=== PATIENT | female | born 1995 | race African-American/Black ===

== ENCOUNTER 2019-03-31 12:59 | Emergency (ER) | payer MEDICAID, OTHER ==
[2019-03-31] MEDS ORDERED: Acetaminophen 500 MG TAB ONE (13:15)
--- NOTE | 2019-03-31 14:17 | ULT ---
Exam: Transabdominal and endovaginal pelvic ultrasound HISTORY:Pelvic pain COMPARISON: None TECHNIQUE: Transabdominal and endovaginal imaging of the pelvis is performed. Ovaries are interrogate d with grayscale, color flow, Doppler imaging and spectral wave form analysis FINDINGS: Uterus: No myometrial masses. Uterus measurin.4 x 5.0 x 7.0 cm. Endometrium: Within the endometrium there is a gestational sac, yolk sac and pole. [place]-rump l ength is 1.87 cm corresponding to gestational age of 8 weeks 3 days. heart tones: 169 bpm Subchorionic hemorrhage: None. Free fluid: There is free fluid in the cul-de-sac. Left ovary: Left ovary is not appreciated. Left adnexa: No obvious masses Right ovary: Normal echotexture. Anechoic focus measuring 1.9 x 1.8 x 1.3 cm may represent a paraovar sav cyst Right ovary measurement: 4.4 x 4.4 x 1.9 cm Ovarian Doppler: Vascular flow to the right ovary IMPRESSION: 1. Single intrauterine gestation with heart tones. Gestational age by crown-rump length is 8 we eks 3 days. 2. Right paraovarian cyst.
== END 2019-03-31 14:55 | disposition home or self-care (01) ==
LOC: ERS 12:59
DX: O20.9 Hemorrhage in early pregnancy, unspecified (principal); O98.811 Other maternal infectious and parasitic diseases complicating pregnancy, first trimester; B37.3 Candidiasis of vulva and vagina; Z3A.08 8 weeks gestation of pregnancy
CPT/HCPCS: 76856; 96360

== ENCOUNTER 2019-08-17 16:06 | Day surgery (SDC) | payer MEDICAID, OTHER ==
[2019-08-17 16:24] VITALS: BMI 39.9
[2019-08-17] MEDS ORDERED: hydrALAZINE 20 MG/ML VIAL SLOW IVP PRN (16:41)
[2019-08-17] MEDS ORDERED: diphenhydrAMINE 50 MG/ML VIAL IVP PRN (16:54)
[2019-08-17] MEDS ORDERED: Metoclopramide HCl 10 MG/2 ML VIAL IVP PRN (16:54)
[2019-08-17 17:00] LABS: Bacteria/HPF None Seen HPF (None Seen); Bilirubin Negative (Negative); Blood, Urine Negative (Negative); Clarity Clear (Clear); Glucose, Urine (Dipstick) Normal (Negative); Leukocyte 250 Leu/uL (Negative); Nitrite Negative (Negative); Protein, Urine (Dipstick) 10 mg/dL (Neg-Trace); RBC/HPF 0-3 HPF (0-3); Urobilinogen Normal mg/dL (Less than 2)
[2019-08-17] MEDS ORDERED: Lactated Ringer's 1,000 ML IV SCH (17:00)
--- NOTE | 2019-08-17 17:11 | HP ---
PRIMARY SECURITY SALES MANAGER: Asia Louise DO. CHIEF COMPLAINT: Abdominal pain. HISTORY OF PRESENT ILLNESS: The patient is a 23-year-old G2, P0 female with an intrauterine at 28 weeks and 1 day, presenting with a 1-week history of lower pelvic pains that she says had gotten worse today. She reports that the pain is sharp and bilateral, worse with activity and movement, but always present. The patient denies any recent illness, fever, fall, headache, chest pain, shortness of breath, nausea, vomiting, or diarrhea. She has had constipation with this . Denies any new rashes, hip problems, knee problems, muscle weakness. Denies vaginal bleeding or leakage of fluid. Denies urinary urgency. Does report frequency. The patient reports she has been having ongoing headache for the last 3 weeks off and on, that has not been amenable with Tylenol. PAST MEDICAL HISTORY: Antiphospholipid antibody syndrome. PAST SURGICAL HISTORY: Negative. ALLERGIES: NO KNOWN DRUG ALLERGIES. MEDICATIONS: 1. Lovenox. 2. Aspirin. 3. vitamins. SOCIAL HISTORY: Positive for marijuana use. OB LABORATORY DATA: Blood type is B positive. Antibody screen is negative. VDRL is nonreactive in the first trimester. Hepatitis B surface antigen is negative. HIV is nonreactive. She is rubella nonimmune. Drug screen positive for THC. Diabetes screen is 101. REVIEW OF SYSTEMS: Per HPI. PHYSICAL EXAMINATION: VITAL SIGNS: Blood pressure is 117/73, heart rate of 93, respiratory rate of 18 , saturating 99% on room air, and temperature 98.2. ASSESSMENT AND PLAN: The patient is a 23-year-old, G2, P0 female with an intrauterine at 28 weeks and a day, on aspirin and Lovenox for antiphospholipid antibody syndrome, presenting with pelvic pain and headache. Pelvic pain is consistent by history and physical exam to musculoskeletal pains of . We are getting a urinalysis to evaluate for possible urinary tract infection. Also given her history of frequency, though given the long-standing course of the symptoms for history of frequency. Fetus has a category 1 tracing and reactive NST. Her headache is unresolved with Tylenol. At this time, we will treat her with Reglan and Benadryl in hopes that will can resolve her symptoms. The patient has had 1000 mg of Tylenol in the last few hours. Pending her urinalysis results and treatment of her headache, the patient will be discharged to home with indicated medications. addendum. headache resolved with reglan/benadryl. Pt feeling better ua. neg for signs of infections Job ID: [id number] MTDD
[2019-08-17] MEDS ORDERED: diphenhydrAMINE 50 MG/ML VIAL ONE (17:47)
[2019-08-17 18:31] LABS: Bacteria/HPF None Seen HPF (None Seen); Bilirubin Negative (Negative); Blood, Urine Negative (Negative); Clarity Clear (Clear); Glucose, Urine (Dipstick) Normal (Negative); Leukocyte Negative Leu/uL (Negative); Nitrite Negative (Negative); Protein, Urine (Dipstick) 20 mg/dL (Neg-Trace); RBC/HPF 0-3 HPF (0-3); Squamous Epithelial 0-3 HPF (0-3); Urobilinogen Normal mg/dL (Less than 2); WBC/HPF 0-3 HPF (0-3)
== END 2019-08-17 19:56 | disposition home or self-care (01) ==
LOC: L&D/OP 16:06
PROVIDERS: ATTEND Obstetrics & Gynecology
DX: O99.89 Other specified diseases and conditions complicating pregnancy, childbirth and the puerperium (principal); R10.2 Pelvic and perineal pain; O99.113 Other diseases of the blood and blood-forming organs and certain disorders involving the immune mechanism complicating pregnancy, third trimester; D68.61 Antiphospholipid syndrome; Z3A.28 28 weeks gestation of pregnancy; Z79.82 Long term (current) use of aspirin; Z79.899 Other long term (current) drug therapy
CPT/HCPCS: 81001; A4353; J1200; J2765

== ENCOUNTER 2019-08-23 22:43 | Emergency (ER) | payer OTHER ==
[2019-08-23] MEDS ORDERED: Ondansetron ODT 4 MG TAB ONE (23:32)
[2019-08-23 23:46] LABS: Bilirubin Negative (Negative); Blood, Urine Negative (Negative); Clarity Clear (Clear); Glucose, Urine (Dipstick) Normal (Negative); Leukocyte Negative Leu/uL (Negative); Nitrite Negative (Negative); Protein, Urine (Dipstick) 10 mg/dL (Neg-Trace)
== END 2019-08-24 00:41 | disposition home or self-care (01) ==
LOC: ERS 22:43
DX: O99.513 Diseases of the respiratory system complicating pregnancy, third trimester (principal); J06.9 Acute upper respiratory infection, unspecified; O98.513 Other viral diseases complicating pregnancy, third trimester; B34.9 Viral infection, unspecified; O99.343 Other mental disorders complicating pregnancy, third trimester; F41.9 Anxiety disorder, unspecified; F32.9 Major depressive disorder, single episode, unspecified; Z79.899 Other long term (current) drug therapy; Z3A.29 29 weeks gestation of pregnancy
CPT/HCPCS: 81003; 87804; Q0162

== ENCOUNTER 2019-09-13 12:10 | Day surgery (SDC) | payer OTHER ==
[2019-09-13 12:52] VITALS: BMI 38.7
[2019-09-13] MEDS ORDERED: FLU VACC QS2019-20(6MOS UP)/PF 60 MCG/0.5 ML SYRINGE IM ONE (13:00)
--- NOTE | 2019-09-13 14:58 | ULT ---
ULTRASOUND BIOPHYSICAL PROFILE: HISTORY: distress, decreased movement FINDINGS: A single live intrauterine gestation is seen. heart rate:144bpm RAMON: 13.8 cm Placenta: Posterior without placenta previa Cervical length: 3.5 cm OB biophysical profile: tone: 2 breathin movements: 2 Amniotic fluid: 2 IMPRESSION: The ultrasound biophysical profile score is 8 out of 8.
[2019-09-13] MEDS ORDERED: hydrALAZINE 20 MG/ML VIAL SLOW IVP PRN (15:00)
--- NOTE | 2019-09-13 15:43 | PRG ---
DATE OF SERVICE: 09/13/2019 PRIMARY OB: Dr. Asia Louise. CHIEF COMPLAINT: Abdominal pain and decreased movement. HISTORY OF PRESENT ILLNESS: The patient is a 23-year-old G2, P0 female with an intrauterine at 31 weeks and 5 days, presenting with onset of left upper quadrant abdominal pain after having intercourse or sex with her female partner earlier today. The patient reports that she has had this pain in the past periodically through the and just came for evaluation. She also reports that she has not felt her baby move very much in the last 24 hours. She reports some spotting that is associated with intercourse. The patient reports that the bleeding is just spotting that she noticed when she wiped and has not had anything persistent. The patient denies any fever, fall. Does have headaches periodically, but this has been a chronic issue for her, and she reports Tylenol helps at times. She denies nausea, vomiting, diarrhea, constipation, hip problems, knee problems, muscle weakness. Denies urinary urgency or frequency. PAST MEDICAL HISTORY: She has antiphospholipid antibody syndrome. PAST SURGICAL HISTORY: D and C. ALLERGIES: NO KNOWN DRUG ALLERGIES. MEDICATIONS: vitamins, aspirin, and Lovenox. SOCIAL HISTORY: Denies drug, alcohol, tobacco use. Reviewing a previous visit about 3 weeks ago, patient was having ongoing back, hip and pelvic pain, worse with movement and activity. OB LABS: Unavailable at time of dictation. REVIEW OF SYSTEMS: Per HPI. PHYSICAL EXAMINATION: VITAL SIGNS: Blood pressure is 132/70, heart rate of 82, respiratory rate of 16, temperature 97.8. GENERAL: She appears to be in no acute distress. She is alert, oriented, cooperative, and pleasant to interact with. HEAD: Normocephalic, atraumatic. LUNGS: Clear to auscultation bilaterally. HEART: Regular rate and rhythm. ABDOMEN: Gravid and soft. She does have a little bit of tenderness with deviation of the uterus to the right with pain on the left in the vicinity of the left fundus. EXTREMITIES: Nontender, nonedematous. : Deferred at this time. DIAGNOSTIC DATA: heart tracing shows a baseline in the 140s with moderate long-term variability as having 10 x 10 accelerations, no findings technically call sign for reactivity until prior to discharge began having 15 x 15 accelerations. BPP was performed and was 8/8. Tocometer showing no contractions. ASSESSMENT AND PLAN: The patient is a 23-year-old G2, P0 female with an intrauterine at 31 weeks and 5 days presenting primarily for abdominal pain but also for decreased movement and some spotting. The patient by history reports that she had this isolated spotting with wiping around the time of intercourse. I have given her reassurance that can be a normal finding. The patient has also been counseled that her fetus is reassuring by BPP and also by heart tracing as both have been reassuring with a combined score of 10/10. The patient is being discharged to home. She has instructions to follow up with her primary OB as scheduled. Job ID: [id number]
== END 2019-09-13 14:40 | disposition home or self-care (01) ==
LOC: L&D/OP 12:10
PROVIDERS: ATTEND Obstetrics & Gynecology
DX: O99.89 Other specified diseases and conditions complicating pregnancy, childbirth and the puerperium (principal); R10.12 Left upper quadrant pain; O36.8130 Decreased fetal movements, third trimester, not applicable or unspecified; O26.853 Spotting complicating pregnancy, third trimester; Z3A.31 31 weeks gestation of pregnancy; Z79.01 Long term (current) use of anticoagulants; Z79.82 Long term (current) use of aspirin
CPT/HCPCS: 76815; 76819; 99282

== ENCOUNTER 2019-09-16 16:38 | Day surgery (SDC) | payer OTHER ==
[2019-09-16] MEDS ORDERED: hydrALAZINE 20 MG/ML VIAL SLOW IVP PRN (17:06)
--- NOTE | 2019-09-16 17:17 | PDOC.FPROB ---
Addendum entered and electronically signed by John Butcher DO 09/16/19 17: 42: Cervical check Closed/0%/-3 posterior Original Note: FMR OB H&P: HPI - History of Present Illness Chief Complaint: Sharp abdominal pain Indentification: 23 yo History of Present Illness: 23 yo F presents for cc of sharp abd pain that radiates from her vagina into her abdomen. She denies contractions, lof and vaginal discharge. She was here for similar symptoms and was told likely dx of round ligament pain. BPP at that time was 8/8 and reactive NST (Total 10/). Pt reports worsening pain with movement and denies remitting factors. Additionally, pt reports small amount of pinktinged paper after wiping this am but denies continued bleeding. She has a history of Antiphospholipid syndrome and takes 40mg lovenox daily, does report she missed her last two doses. Otherwise, denies cp, sob, dysuria, fever, chills. Primary Care Physician: Jessica FMR OB H&P: Current - Care : 2 Para: 0010 Gestational age: 32.1 Due date: 11/10/19 - OB Labs Blood type: B RH: positive Antibody Screen: negative HIV: negative RPR: negative HepBsAg: negative Rubella: non-immune (equivocal) Quad screen: negative Urine drug screen: positive (thc) Gonorrhea: negative Chlamydia: negative Pap Smear: 04/16 nilm 1 hour gtt: 101 FMR OB H&P: History - Past Medical History PMH: Antiphospholipid syndrome - OB History OB History: 1 prior miscarriage APS taking lovenox - [employer]HO[employer] History [employer] History: NILM 2019, no hx of stis - Surgical History Sx History: D&C X1 - Social History Social History: Denies alcohol tobacco and drugs (pos UDS this ) - Family History Family History: Paternal history of OR and stroke @ age 50 Paternal hx of DMII FMR OB H&P: Medications - Current Home Medications: Medication Instructions Recorded Confirmed Type Enoxaparin Sodium [Lovenox] 1 syringe SQ DAILY 08/17/19 09/13/19 History Vit37/Iron/Folic Acid 1 tab PO DAILY 08/17/19 09/13/19 History [P[place]ata Chewable Tablet] Allergies/Adverse Reactions: Allergies Allergy/AdvReac Type Severity Reaction Status Date / Time No Known Allergies Allergy Verified 09/16/19 17:01 FMR OB H&P: ROS - Review of Systems General: denies: fever/chills, night sweats Eyes: denies: vision changes, scotomas Cardiovascular: reports: edema. denies: chest pain, palpitation Respiratory: denies: cough, shortness of breath Gastrointestinal: reports: abdominal pain, nausea. denies: indigestion, bloating, cramping, vomiting, diarrhea, constipation Genitourinary (Female): reports: vaginal bleeding. denies: dysuria, hematuria, polyuria, vaginal discharge, vaginal pain, contractions, vaginal pressure Musculoskeletal: denies: pain Neurologic: denies: weakness Integumentary: denies: rash Psychological: reports: depression FMR OB H&P: Vital Signs - Heart Tones Baseline: 150 Variability: moderate Acceleration: present Deceleration: absent Category: category 1 [place] contractions every: None FMR OB H&P: Physical Exam - Physical Exam General: NAD, awake, alert and oriented HEENT: normocephalic and atraumatic, PERRLA, EOMI, MMM, grossly normal vision, grossly normal hearing Neck: trachea midline Heart: RRR, normal S1/S2 General: CTAB, no respiratory distress, good air movement, no rales/rhonchi, no wheezing, no retractions Abdomen: soft, gravid, non-tender, bowel sound present, no masses Neurological: no focal deficit Skin: no rash Lymphatic: no purpura FMR OB H&P: A/P Disposition: Stable, pain likelrelated to round ligament Discussion: Date/Time: 09/16/191710 This H&P was discussed with Dr. Oliveros who agrees with the above documentation and plan. 1) Round ligament pain - pt given fentanyl in EMS and reports improvement in pain - discussed rx of tylenol for continued round ligament pain 2) Decreased movement - BPP ordered - strip reactive Dispo: stable, will check bpp for well being and likely dc to home pending results. Tylenol prn for pain. Abd exam benign and no s/s of significant pathology. Addendum - Attending - Attending Attestation Date/Time: 09/16/191941 I personally evaluated the patient and discussed the management with Dr. Butcher. I agree with the History, Examination, Assessment and Plan documented above with any addition or exceptions noted below. VP3 + for gardnerella - given Rx for Flagyl. Complained of BYRD - given Reglan and Benadryl. BPP 06/07. D/c home when she is able to get a ride.
[2019-09-16] MEDS ORDERED: Metoclopramide HCl 10 MG/2 ML VIAL IVP SCH (19:00)
[2019-09-16] MEDS ORDERED: diphenhydrAMINE 50 MG/ML VIAL IVP SCH (19:00)
--- NOTE | 2019-09-16 20:17 | ULT ---
ULTRASOUND BIOPHYSICAL PROFILE: DATE: 09/16/2019 HISTORY: 23-year-old female. Decreased movement. FINDINGS: breathin tone: 2 movement: 2 Amniotic fluid volume: 2 lie: Cephalic Placenta: Posterior. Maternal cervix poorly visualized. RAMON: 11.5 cm IMPRESSION: Normal biophysical profile score of 8 out of 8, excluding the nonstress test.
== END 2019-09-16 19:39 | disposition home or self-care (01) ==
LOC: L&D/OP 16:38
PROVIDERS: ATTEND Obstetrics & Gynecology
DX: O99.89 Other specified diseases and conditions complicating pregnancy, childbirth and the puerperium (principal); R10.9 Unspecified abdominal pain; O36.8130 Decreased fetal movements, third trimester, not applicable or unspecified; O99.113 Other diseases of the blood and blood-forming organs and certain disorders involving the immune mechanism complicating pregnancy, third trimester; D68.61 Antiphospholipid syndrome; O09.293 Supervision of pregnancy with other poor reproductive or obstetric history, third trimester; Z3A.32 32 weeks gestation of pregnancy; Z79.01 Long term (current) use of anticoagulants
CPT/HCPCS: 76819; 87480; 87510; 87660; J1200; J2765

== ENCOUNTER 2019-10-22 18:00 | Inpatient (IN) | payer OTHER ==
[~2019-10-22 18:00] MED LIST: Bupivacaine 0.25% HCL 30 ML VIAL ONE; Bupivacaine PF 0.5% 30 ML VIAL ONE; Lidocaine 2% MPF 10 ML AMP (For Epidural Use) ONE
[2019-10-22] MEDS ORDERED: Ondansetron PF 4 MG/2 ML Vial IVP PRN (18:28)
[2019-10-22] MEDS ORDERED: Methylergonovine 0.2 MG/ML VIAL IM PRN (18:28)
[2019-10-22] MEDS ORDERED: hydrALAZINE 20 MG/ML VIAL SLOW IVP PRN (18:28)
[2019-10-22] MEDS ORDERED: Diphenoxylate HCl/Atropine Tablet PO PRN (18:28)
[2019-10-22] MEDS ORDERED: Ibuprofen 800 MG TAB PO PRN (18:28)
[2019-10-22] MEDS ORDERED: NS / Oxytocin 40 units/1000ml 1,000 ML IV PRN (18:28)
[2019-10-22] MEDS ORDERED: Carboprost 250 MCG/ML AMP IM PRN (18:28)
[2019-10-22] MEDS ORDERED: Misoprostol 200 MCG TAB PR PRN (18:28)
[2019-10-22] MEDS ORDERED: Lidocaine 1% (PF) 30 ML VIAL SC PRN (18:28)
[2019-10-22] MEDS ORDERED: Acetaminophen 500 MG TAB PO PRN (18:28)
[2019-10-22] MEDS ORDERED: Promethazine HCl 25 MG/ML VIAL IM PRN (18:28)
--- NOTE | 2019-10-22 18:39 | PDOC.LDHP ---
Labor and Delivery H&P Chief complaint: scheduled induction HPI: 24 yo @ 37w2d admit for IOL due to h/o APS, no personal h/o of DVT. Current gestational age (weeks): 37 Due date: 11/10/19 Dating criteria: last menstrual period Grav: 2 Para: 0 OB History Details: 2nd trimester MAB @ 12 weeks Current complications: other (APS) Past Medical History: APS Obesity Anemia Current medications: pre- vitamins, iron, other (Lovenox 40 units daily for PPX (last does yesterday morning) ASA 81 mg QD) Previous surgical history: dilation and curettage Allergies/Adverse Reactions: Allergies Allergy/AdvReac Type Severity Reaction Status Date / Time No Known Allergies Allergy Verified 09/16/19 17:01 Social history: none - Physical Exam Vital signs reviewed and normal: yes General: NAD Heart: RRR Lungs: nonlabored breathing Extremeties: no edema FHT: category 1 (140s, mod chetan, +accels, no decels) [place] contractions every: q2-3 min when properly tracing - Vaginal Exam cm dilated: 1 (cephalic ) Effacement: 50% Station: -2 - OB Labs Blood type: B RH: positive Antibody Screen: negative HIV: negative RPR: negative HEPSAg: negative 1 hour GCT: negative GBS: negative Urine drug screen: positive (repeat negative) Rubella: non-immune Additional Labs: NIPT, msAFP wnl APS + - Assessment 37w2d IUP H/O APS with 2nd trimester MAB Obesity Rubella NI Prior THC use, repeat testing negative Anemia - Plan Plan: admit to L&D, cervical ripening (s/p cytotec x 2; now on pitocin.), informed consent obtained, anesthesia consult for pain management -: Restart lovenox x 6 weeks PP MMR PP 2 units on hold
[2019-10-22 18:40] VITALS: BMI 40.3
[2019-10-22] MEDS: Lactated Ringer's 1,000 ML IV SCH (19:50)
[2019-10-22 19:53] LABS: Hemoglobin 9.6 g/dL (12.0-16.0); Mean Corpuscular HGB CONC 33.9 g/dL (32.0-36.0); Mean Corpuscular Hemoglobin 29.3 pg (27.0-31.0); Mean Corpuscular Volume 86.4 fL (78.0-98.0); Mean Platelet Volume 8.1 fL (7.4-10.4); Platelet Count 293 thou/uL (130-400); RBC Distribution Width 12.7 % (11.5-14.5); Red Blood Cell (RBC) Count 3.28 mill/uL (4.20-5.40)
[2019-10-22] MEDS: Misoprostol 100 MCG TAB VAG SCH (20:13)
[2019-10-22 20:33] LABS: HBSAg Index 0.21 S/CO (0-0.99); Hep B Surf Ag Non-Reactive S/CO (NonReactive); Syphilis Antibody Nonreactive (Nonreactive); Syphilis Antibody Index 0.05 S/CO (<1.00 Non-Reactive)
[2019-10-22 21:49] LABS: Medtox Reader # READER 1
[2019-10-22 21:50] LABS: Amphetamine Not Detected (NotDetected); Barbiturates Screen Not Detected (NotDetected); Benzodiazepine Screen Not Detected (NotDetected); Cocaine Metabolite Screen Not Detected (NotDetected); Medtox Control Line Valid? VALID (VALID); Methadone Not Detected (NotDetected); Methamphetamine Not Detected (NotDetected); Opiate Screen Not Detected (NotDetected); Oxycodone Screen Not Detected (NotDetected); Phencyclidine (PCP) Not Detected (NotDetected); THC/Cannabinoid Screen Not Detected (NotDetected); Tricyclic Screen Not Detected (NotDetected)
[2019-10-22] MEDS: Butorphanol Tartrate 1 MG/ML VIAL SLOW IVP PRN (21:57)
[2019-10-22 23:23] LABS: HIV (1/2) Antibody/Antigen Non-Reactive (NonReactive); HIV 1/2 INDEX 0.11 S/CO (<1.00)
[2019-10-23] MEDS: Misoprostol 100 MCG TAB VAG SCH ×6 (00:03→22:32)
[2019-10-23] MEDS: Butorphanol Tartrate 1 MG/ML VIAL SLOW IVP PRN ×4 (01:10→07:27)
[2019-10-23] MEDS: Lactated Ringer's 1,000 ML IV SCH ×4 (04:30→17:02)
[2019-10-23] MEDS: NS w/ Oxytocin 10 units 500 ML IV SCH (05:37)
[2019-10-23] MEDS ORDERED: Fentanyl 4 mcg/Bup 0.1% Cadd 100 ML ONE ×2 (08:25→14:45)
[2019-10-23] MEDS ORDERED: EPHEDRINE 25 MG/5 ML SYRINGE SLOW IVP PRN (08:59)
[2019-10-23] MEDS ORDERED: Ondansetron PF 4 MG/2 ML Vial IVP PRN (08:59)
[2019-10-23] MEDS ORDERED: Acetaminophen 325 MG TAB PO PRN ×2 (08:59→21:01)
[2019-10-23] MEDS ORDERED: Lactated Ringer's 500 ML IV PRN (08:59)
[2019-10-23] MEDS ORDERED: Promethazine HCl 25 MG/ML VIAL IM PRN (08:59)
[2019-10-23] MEDS ORDERED: Naloxone HCl 0.4 mg/ml Vial IVP PRN ×2 (08:59)
[2019-10-23] MEDS ORDERED: diphenhydrAMINE 50 MG/ML VIAL IVP PRN ×2 (08:59→18:50)
[2019-10-23] MEDS ORDERED: Communication Order-Pharmacy FS SCH ×2 (09:00→19:00)
[2019-10-23] MEDS ORDERED: Fentanyl 4 mcg/Bupivacaine 0.1% Cassette 100 ML EPIDURAL SCH (09:00)
[2019-10-23] MEDS ORDERED: Fentanyl 100 MCG/2 ML VIAL ONE ×3 (13:19→17:33)
--- NOTE | 2019-10-23 13:37 | PDOC.LDPN ---
Labor & Delivery Progress Note - Subjective Subjective: painful contractions - Objective Vital signs reviewed and normal: yes General: NAD Uterine fundus: non tender Dilation: 3 Effacement: 50% Station: -2 FHT: category 1 (140s, mod chetan, +accels, no decels ) [place] contractions every: q2-4 min AROM: clear fluid IUPC placed: yes FSE placed: yes - Assessment (1) 37 weeks gestation of Code(s): Z3A.37 - 37 WEEKS GESTATION OF Current Visit: Yes Status : Acute (2) Antiphospholipid antibody syndrome Code(s): D68.61 - ANTIPHOSPHOLIPID SYNDROME Current Visit: Yes Status: Acute (3) Obesity Code(s): E66.9 - OBESITY, UNSPECIFIED Current Visit: Yes Status: Acute (4) Rubella non-immune status, antepartum Code(s): O99.89 - OTH DISEASES AND CONDITIONS COMPL PREG/CHLDBRTH; Z28.3 - UNDERIMMUNIZATION STATUS Current Visit: Yes Status: Acute (5) Anemia Code(s): D64.9 - ANEMIA, UNSPECIFIED Current Visit: Yes Status: Acute Qualifiers: Anemia type: iron deficiency Iron deficiency anemia type: unspecified iron deficiency Qualified Code(s): D50.9 - Iron deficiency anemia, unspecified Plan: continue plan of care, pitocin for augmentation
--- NOTE | 2019-10-23 17:17 | PDOC.LDPN ---
Labor & Delivery Progress Note - Subjective Subjective: painful contractions, other (Pt has had 3 epidural replacements and has no pain control on her left side. ) - Objective Vital signs reviewed and normal: yes General: NAD Uterine fundus: non tender Dilation: 4 Effacement: 75% Station: -2 FHT: category 2 (140s, mod chetan, +accels, one variable decel ) [place] contractions every: q2-3min Other exam findings: Adequate MVUs x 4 hrs - Assessment (1) 37 weeks gestation of Code(s): Z3A.37 - 37 WEEKS GESTATION OF Current Visit: Yes Status : Acute (2) Antiphospholipid antibody syndrome Code(s): D68.61 - ANTIPHOSPHOLIPID SYNDROME Current Visit: Yes Status: Acute (3) Obesity Code(s): E66.9 - OBESITY, UNSPECIFIED Current Visit: Yes Status: Acute (4) Rubella non-immune status, antepartum Code(s): O99.89 - OTH DISEASES AND CONDITIONS COMPL PREG/CHLDBRTH; Z28.3 - UNDERIMMUNIZATION STATUS Current Visit: Yes Status: Acute (5) Anemia Code(s): D64.9 - ANEMIA, UNSPECIFIED Current Visit: Yes Status: Acute Qualifiers: Anemia type: iron deficiency Iron deficiency anemia type: unspecified iron deficiency Qualified Code(s): D50.9 - Iron deficiency anemia, unspecified -: Pt requesting CS due to lack of pain control despite 3 epidural attempts. Reviewed R/B/A/I of PLTCS vs continue IOL for VD. Pt understands that she will require general anesthesia due to uncontrolled regional anesthesia. Pt has elected for a PLTCS with general anesthesia.
[2019-10-23] MEDS ORDERED: PROPOFOL 20 ML ONE (17:32)
[2019-10-23] MEDS ORDERED: Midazolam HCl 2 mg/2 ml Vial ONE (17:33)
[2019-10-23] MEDS ORDERED: Rocuronium Bromide 10 MG/ML (10ML VIAL) ONE (17:34)
[2019-10-23] MEDS ORDERED: Succinylcholine Chloride 20 MG/ML 10 ml SYRINGE FS ONE (17:37)
[2019-10-23] MEDS ORDERED: Bicitra 30 ML UDCUP ONE (17:40)
[2019-10-23] MEDS ORDERED: CEFAZOLIN 2 GM in Premix Bag 1 BAG IVPB SCH (17:45)
[2019-10-23] MEDS ORDERED: Azithromycin 500 MG VIAL ONE (17:47)
[2019-10-23] MEDS ORDERED: Azithromycin 500 MG in Sodium Chloride 0.9% 250 ML 250 ML IVPB SCH (18:00)
[2019-10-23] MEDS ORDERED: Oxytocin 10 UNITS/ML VIAL ONE (18:16)
[2019-10-23] MEDS ORDERED: Ondansetron PF 4 MG/2 ML Vial ONE (18:17)
[2019-10-23] MEDS ORDERED: Morphine 4 MG/ML VIAL ONE (18:17)
[2019-10-23 18:29] LABS: Actual Bicarbonate (HCO3a) 24.8 mEq/L (22-28); Base Excess (BEa) -1.4 mEq/L (-2.0 to +3.0)
[2019-10-23 18:31] LABS: Actual Bicarbonate (HCO3v) 27 mEq/L (22-28); Base Excess -0.6 mEq/L (-2.0 to +3.0); pH (Cord, venous) 7.31 (7.32-7.43)
--- NOTE | 2019-10-23 18:40 | PDOC.OPDEL ---
OB Operative/Delivery Note Delivery Dr/Surgeon: Asia Louise DO Assist: Stacey Oliveros MD Pre-Delivery Diagnosis: medically indicated induction Procedure/Post Delivery Dx: primary low transverse CS Weeks gestation: 37 Anesthesia: other (general) - Findings A Sex: female - 1 min: 5 - 5 min: 9 - Additional Findings/Plan Placenta delivered: spontaneous findings: low transverse hysterotomy without extension, normal uterus, normal tubes, normal ovaries Estimated blood loss: EMB 500 cc; QBL 655 cc Compilations/Other Findings: in cephalic presentation Clear amniotic fluid Normal appearing placenta Post delivery plan: routine recovery
[2019-10-23] MEDS ORDERED: Naloxone HCl 0.4 mg/ml Vial IV PRN (18:50)
[2019-10-23] MEDS ORDERED: Morphine CADD 1 MG/ML CADD IVPB PRN (18:50)
[2019-10-23] MEDS ORDERED: Ketorolac Tromethamine 30 MG/ML VIAL IVP PRN (18:50)
[2019-10-23] MEDS ORDERED: Morphine Sulfate 100 MG in Dextrose 5% in Water 98 ML IV SCH (19:13)
[2019-10-23] MEDS ORDERED: Bisacodyl 10 MG SUPP PR PRN (21:01)
[2019-10-23] MEDS ORDERED: HYDROcodone/Acetaminophen 5/325 mg Tablet PO PRN (21:01)
[2019-10-23] MEDS ORDERED: Lanolin Ointment 7 GM TUBE TOP PRN (21:01)
[2019-10-23] MEDS ORDERED: NS / Oxytocin 40 units/1000ml 1,000 ML IV SCH (21:01)
[2019-10-23] MEDS ORDERED: hydrALAZINE 20 MG/ML VIAL SLOW IVP PRN (21:01)
[2019-10-23] MEDS ORDERED: diphenhydrAMINE 25 MG CAP PO PRN (21:01)
[2019-10-23] MEDS ORDERED: Simethicone Chewable 80 MG TAB PO PRN (21:01)
[2019-10-23] MEDS ORDERED: Methylergonovine 0.2 MG/ML VIAL IM PRN (21:01)
[2019-10-23] MEDS ORDERED: Misoprostol 200 MCG TAB PR PRN (21:01)
[2019-10-23] MEDS: Docusate Calcium (SURFAK) 240 MG CAP PO SCH (22:34)
[2019-10-23] MEDS: Ibuprofen 800 MG TAB PO SCH (22:35)
[2019-10-23] MEDS: Ferrous Sulfate 325 MG TAB PO SCH (22:35)
[2019-10-24] MEDS: Lactated Ringer's 1,000 ML IV SCH ×2 (01:28→22:49)
[2019-10-24] MEDS: Ibuprofen 800 MG TAB PO SCH ×3 (05:09→21:45)
[2019-10-24] MEDS: NS w/ Oxytocin 10 units 500 ML IV SCH (05:10)
[2019-10-24 06:00] LABS: Hemoglobin 7.7 g/dL (12.0-16.0); Mean Corpuscular Hemoglobin 29.4 pg (27.0-31.0); Mean Corpuscular Volume 86.6 fL (78.0-98.0); Mean Platelet Volume 7.8 fL (7.4-10.4); Platelet Count 212 thou/uL (130-400); RBC Distribution Width 12.8 % (11.5-14.5); Red Blood Cell (RBC) Count 2.63 mill/uL (4.20-5.40); White Blood Cell (WBC) Count 11.3 thou/uL (4.8-10.8)
[2019-10-24] MEDS: Docusate Calcium (SURFAK) 240 MG CAP PO SCH ×2 (08:08→21:45)
[2019-10-24] MEDS: Ferrous Sulfate 325 MG TAB PO SCH ×2 (08:08→21:45)
[2019-10-24] MEDS: Prenatal Vitamin 1 TAB PO SCH (08:08)
--- NOTE | 2019-10-24 08:15 | PDOC.PP ---
Post Progress Note Post Day #: 1 Subjective: Pain moderate, using JEWEL STRIPPER. [place] and SCDs in place, Not yet ambulating. Minimal lochia. PO intake tolerated: yes Flatus: yes Ambulation: no Vital Signs (12 hours) Temp Pulse Resp BP Pulse Ox 10/24/19 03:25 99.7 F H 94 16 130/73 10/23/19 23:00 99.1 F 87 16 141/80 H 10/23/19 21:30 99.3 F 83 16 131/75 97 Weight Weight 250 lb - Physical Examination General: NAD Cardiovascular: RRR Respiratory: non-labored breathing Abdominal: no distention, appropriately TTP Fundus firm & at: below umbilicus Extremities: negative homans (B) Deviation from normal: Dressing c/d/i Neurological: no gross focal deficits Psychiatric: A&Ox3, normal affect Result Diagrams: 10/24/19 05:43 Additional Labs: Post Labs Blood Type B POSITIVE 10/22/19 19:19 Hep Bs Antigen Non-Reactive S/CO (NonReactive) 10/22/19 19:19 (1) 37 weeks gestation of Code(s): Z3A.37 - 37 WEEKS GESTATION OF Status: Resolved (2) Antiphospholipid antibody syndrome Code(s): D68.61 - ANTIPHOSPHOLIPID SYNDROME Status: Chronic (3) Obesity Code(s): E66.9 - OBESITY, UNSPECIFIED Status: Acute (4) Rubella non-immune status, antepartum Code(s): O99.89 - OTH DISEASES AND CONDITIONS COMPL PREG/CHLDBRTH; Z28.3 - UNDERIMMUNIZATION STATUS Status: Acute (5) Anemia Code(s): D64.9 - ANEMIA, UNSPECIFIED Status: Acute Qualifiers: Anemia type: iron deficiency Iron deficiency anemia type: unspecified iron deficiency Qualified Code(s): D50.9 - Iron deficiency anemia, unspecified (6) delivery delivered Code(s): O82 - ENCOUNTER FOR DELIVERY WITHOUT INDICATION Status: Acute - Assessment/Plan PPD1 VSSAF Anemia appropriate for chronic + acute. Fe supplement. Continue PP care and remove walrdon/ambulate, etc. Remove JEWEL STRIPPER and encouraged oral meds. Repeat CBC tomorrow to assure does not require transfusion. Plan for d/c 1-2 days. MMR PP
[2019-10-24] MEDS ORDERED: Measles/Mumps/Rubella 10 MCG/0.5 ML VIAL SC ONE (09:00)
--- NOTE | 2019-10-24 11:48 | OP ---
DATE OF PROCEDURE: 10/23/2019 PREOPERATIVE DIAGNOSES: 1. 37-week 2-day intrauterine . 2. Antiphospholipid syndrome. 3. Induction of labor. 4. Obesity. 5. Anemia. POSTOPERATIVE DIAGNOSES: 1. 37-week 2-day intrauterine . 2. Antiphospholipid syndrome. 3. Induction of labor. 4. Obesity. 5. Anemia. PROCEDURE PERFORMED: Elective primary low-transverse delivery via Pfannenstiel skin incision. SURGEON: Asia Louise DO PARTNER MANAGEMENT CONSULTANT: Stacey Oliveros MD ANESTHESIA: General. COMPLICATIONS: None. ESTIMATED BLOOD LOSS: Approximately 500 mL. URINARY OUTPUT: 100 mL of clear urine. FINDINGS: Viable female in cephalic presentation. Clear amniotic fluid. Normal-appearing placenta. Normal-appearing bilateral fallopian tubes and ovaries. INDICATIONS FOR THE PROCEDURE: Ms. Vanessa Sutton is a 24-year-old, G2, P0, at 37 weeks and 2 days, who underwent an induction of labor due to antiphospholipid syndrome. The patient had three attempts of an epidural anesthesia and was still remote from delivery. Due to her severe pain, the patient refused to undergo additional induction and requested an elective . Risks, benefits, and alternatives was reviewed with the patient. She understands that she would have to require general anesthesia. The patient requested a primary delivery under general anesthesia. DESCRIPTION OF PROCEDURE: The patient was brought to the operating room. She was placed in supine position with a leftward tilt. A Parrish catheter had already been placed. She was prepped and draped in a sterile fashion. An official time-out was performed. She was given azithromycin and Ancef for surgical prophylaxis and the patient was then placed under general anesthesia. A Pfannenstiel skin incision was made using the scalpel and carried down to the underlying fascia layer. The fascia was incised in the midline and was extended bilaterally using Baltazar scissors. The superior aspect of the fascial incision was grasped using Constantino clamps, tented upward and dissected free from the rectus abdominis muscles and the same was done to the inferior aspect of the fascial incision. The rectus abdominis muscles were bluntly. The peritoneum was then entered using blunt dissection. The Jose O retractor was then placed into the abdomen and appropriately secured. A low-transverse hysterotomy was made using the scalpel. The hysterotomy was extended using blunt dissection. Amniotic membranes were ruptured noting clear amniotic fluid. Infant was delivered in cephalic presentation. The 's cord was clamped and cut. The infant was handed to the waiting neonatology and NICU team. The did not have immediate cry. It took approximately 3 to 4 minutes from time of skin incision to delivery of the infant. The cord gases were obtained, which were normal. Cord blood was also obtained. The placenta was delivered. The uterus was cleared of all clot and debris. There was initial atony that resolved with gentle massage and Pitocin and closure of the hysterotomy. The hysterotomy was closed in a running locking fashion using 1 Monocryl, creating hemostasis. The pelvis was irrigated and cleared of all clot and debris. The bilateral adnexa were evaluated, normal appearance. Again, the hysterotomy was evaluated, hemostatic. The Jose O retractor was then removed from the abdomen. The rectus muscles were evaluated and hemostatic. The fascia was then closed in a running fashion using 0 PDS. Subcutaneous layer was copiously irrigated. And hemostatic with use of the Bovie. The subcutaneous layer was closed using 3-0 Vicryl and the skin was closed using 4-0 Monocryl and Dermabond. The patient tolerated the procedure well. There were no complications. All counts were correct x2. The patient was extubated without difficulty and was transferred to the nursery. Job ID: [id number] [facility]
--- NOTE | 2019-10-24 11:49 | OP ---
DATE OF PROCEDURE: 10/23/2019 ADDENDUM: I was present and scrubbed to assist the uncomplicated primary low-transverse with Dr. Asia Louise. Please see her note for full details. Job ID: [id number]
[2019-10-24] MEDS: HYDROcodone/Acetaminophen 5/325 mg Tablet PO PRN ×3 (13:26→22:48)
[2019-10-24] MEDS ORDERED: Enoxaparin Sodium 40 MG/0.4 ML SYRINGE SC SCH (21:00)
[2019-10-25] MEDS: Lactated Ringer's 1,000 ML IV SCH (04:15)
[2019-10-25] MEDS: Ibuprofen 800 MG TAB PO SCH ×2 (05:27→14:34)
[2019-10-25 05:58] LABS: #Eosinphils 0.1 thou/uL (0.0-0.7); #Lymphocytes 2.7 thou/uL (1.20-3.40); #Monocytes 0.9 thou/uL (0.11-0.59); %Eosinophils 1.4 % (0.0-10.0); %Lymphocytes 27.5 % (21.0-51.0); %Monocytes 9.2 % (0.0-10.0); %Neutrophils 61.9 % (42.0-75.0); Hemoglobin 7.6 g/dL (12.0-16.0); Mean Corpuscular HGB CONC 33.6 g/dL (32.0-36.0); Mean Corpuscular Hemoglobin 29.7 pg (27.0-31.0); Mean Corpuscular Volume 88.4 fL (78.0-98.0); Mean Platelet Volume 7.9 fL (7.4-10.4); Platelet Count 216 thou/uL (130-400); RBC Distribution Width 12.8 % (11.5-14.5); Red Blood Cell (RBC) Count 2.55 mill/uL (4.20-5.40); White Blood Cell (WBC) Count 9.7 thou/uL (4.8-10.8)
[2019-10-25] MEDS: Prenatal Vitamin 1 TAB PO SCH (08:18)
[2019-10-25] MEDS: HYDROcodone/Acetaminophen 5/325 mg Tablet PO PRN (08:18)
[2019-10-25 08:19] VITALS: BP 112/68; TEMP 97.8
[2019-10-25] MEDS: Ferrous Sulfate 325 MG TAB PO SCH (08:19)
[2019-10-25] MEDS: Docusate Calcium (SURFAK) 240 MG CAP PO SCH (08:20)
[2019-10-25 08:26] LABS: #Eosinphils 0.1 thou/uL (0.0-0.7); #Lymphocytes 2.4 thou/uL (1.20-3.40); #Monocytes 0.6 thou/uL (0.11-0.59); #Neutrophils 5.6 thou/uL (1.40-6.50); %Basophils 0.3 % (0.0-1.0); %Eosinophils 1.5 % (0.0-10.0); %Lymphocytes 27.2 % (21.0-51.0); %Monocytes 7.4 % (0.0-10.0); %Neutrophils 63.6 % (42.0-75.0); Hemoglobin 7.9 g/dL (12.0-16.0); Mean Corpuscular HGB CONC 33.3 g/dL (32.0-36.0); Mean Corpuscular Hemoglobin 29.8 pg (27.0-31.0); Mean Corpuscular Volume 89.3 fL (78.0-98.0); Mean Platelet Volume 7.8 fL (7.4-10.4); Platelet Count 229 thou/uL (130-400); RBC Distribution Width 12.8 % (11.5-14.5); Red Blood Cell (RBC) Count 2.66 mill/uL (4.20-5.40); White Blood Cell (WBC) Count 8.7 thou/uL (4.8-10.8)
--- NOTE | 2019-10-25 09:03 | PDOC.PP ---
Post Progress Note Post Day #: 2 Subjective: Overall doing much better. Pain is more controlled with oral meds. Passing flatus, voiding and tolerating PO. Denies dizziness. Anemia stable. PO intake tolerated: yes Flatus: yes Ambulation: yes Vital Signs (12 hours) Temp Pulse Resp BP Pulse Ox 10/25/19 08:18 97.8 F 80 20 112/68 99 10/24/19 23:45 98.3 F 84 20 118/61 98 Weight Weight 250 lb - Physical Examination General: NAD Cardiovascular: RRR Respiratory: non-labored breathing Abdominal: no distention, appropriately TTP Fundus firm & at: below umbilicus Extremities: negative homans (B) Skin: CS incision dry & intact, no rash Neurological: no gross focal deficits Psychiatric: A&Ox3, normal affect Result Diagrams: 10/25/19 08:08 Additional Labs: Post Labs Blood Type B POSITIVE 10/22/19 19:19 Hep Bs Antigen Non-Reactive S/CO (NonReactive) 10/22/19 19:19 (1) 37 weeks gestation of Code(s): Z3A.37 - 37 WEEKS GESTATION OF Status: Resolved (2) Antiphospholipid antibody syndrome Code(s): D68.61 - ANTIPHOSPHOLIPID SYNDROME Status: Chronic (3) Obesity Code(s): E66.9 - OBESITY, UNSPECIFIED Status: Acute (4) Rubella non-immune status, antepartum Code(s): O99.89 - OTH DISEASES AND CONDITIONS COMPL PREG/CHLDBRTH; Z28.3 - UNDERIMMUNIZATION STATUS Status: Acute (5) Anemia Code(s): D64.9 - ANEMIA, UNSPECIFIED Status: Acute Qualifiers: Anemia type: iron deficiency Iron deficiency anemia type: unspecified iron deficiency Qualified Code(s): D50.9 - Iron deficiency anemia, unspecified (6) delivery delivered Code(s): O82 - ENCOUNTER FOR DELIVERY WITHOUT INDICATION Status: Acute - Assessment/Plan PPD2 VSSAF Continue PP care Plan for d/c home this PM, plan to continue PP care and pain control. Anemia stable. Fe supplement.
== END 2019-10-25 16:10 | disposition home or self-care (01) | DRG 787 ==
LOC: L&D 18:13 → 3SW 10-23 21:23
PROVIDERS: ADMIT Obstetrics & Gynecology; ATTEND Obstetrics & Gynecology
PROC: 10D00Z1 Extraction of Products of Conception, Low, Open Approach (ICD-10-PCS; principal; 2019-10-23)
PROC: 10907ZC Drainage of Amniotic Fluid, Therapeutic from Products of Conception, Via Natural or Artificial Opening (ICD-10-PCS; 2019-10-23)
PROC: 3E0P7VZ Introduction of Hormone into Female Reproductive, Via Natural or Artificial Opening (ICD-10-PCS; 2019-10-23)
PROC: 3E033VJ Introduction of Other Hormone into Peripheral Vein, Percutaneous Approach (ICD-10-PCS; 2019-10-23)
DX: O99.12 Other diseases of the blood and blood-forming organs and certain disorders involving the immune mechanism complicating childbirth (principal); D68.61 Antiphospholipid syndrome; O99.214 Obesity complicating childbirth; E66.9 Obesity, unspecified; O99.02 Anemia complicating childbirth; D50.9 Iron deficiency anemia, unspecified; O76 Abnormality in fetal heart rate and rhythm complicating labor and delivery; Z3A.37 37 weeks gestation of pregnancy; Z37.0 Single live birth; Z79.82 Long term (current) use of aspirin
CPT/HCPCS: 36415; 36416; 51702; 80306; 82805; 85025; 85027; 86780; 86850; 86900; 86901; 87340; 87389; 90707; J0456; J0595; J0690; J1650; J1885; J2001; J2250; J2270; J2405; J2590; J2704; J3010; J7050; J7070; S0020

== ENCOUNTER 2020-07-13 11:57 | Emergency (ER) | payer OTHER ==
[2020-07-13 12:52] LABS: #Eosinphils 0.2 thou/uL (0.0-0.7); #Monocytes 0.5 thou/uL (0.11-0.59); #Neutrophils 6.3 thou/uL (1.40-6.50); %Basophils 0.2 % (0.0-1.0); %Eosinophils 1.9 % (0.0-10.0); %Lymphocytes 29.6 % (21.0-51.0); %Monocytes 5.2 % (0.0-10.0); %Neutrophils 63.1 % (42.0-75.0); Hemoglobin 12.9 g/dL (12.0-16.0); Mean Corpuscular HGB CONC 34.3 g/dL (32.0-36.0); Mean Corpuscular Hemoglobin 31.4 pg (27.0-31.0); Mean Corpuscular Volume 91.5 fL (78.0-98.0); Mean Platelet Volume 9.1 fL (7.4-10.4); Platelet Count 284 thou/uL (130-400); RBC Distribution Width 11.7 % (11.5-14.5); Red Blood Cell (RBC) Count 4.11 mill/uL (4.20-5.40)
[2020-07-13 13:12] LABS: ALT (SGPT) 11 U/L (8-55); AST (SGOT) 10 U/L (5-34); Albumin 4.1 g/dL (3.5-5.0); Alkaline Phosphatase 84 U/L (40-110); Anion Gap 11 mmol/L (10-20); BUN (Urea Nitrogen) 9 mg/dL (7.0-18.7); Bilirubin, Total 0.3 mg/dL (0.2-1.2); Calc. Creatinine Clearance 0 mL/min (70-130); Calcium 9.2 mg/dL (7.8-10.44); Carbon Dioxide 28 mmol/L (22-29); Chloride 106 mmol/L (98-107); Globulin 3.5 g/dL (2.4-3.5); Glucose 100 mg/dL (70-105); Potassium 3.3 mmol/L (3.5-5.1); Protein, Total 7.6 g/dL (6.0-8.3); Sodium 142 mmol/L (136-145)
--- NOTE | 2020-07-13 14:15 | RAD ---
Exam: One view pelvis HISTORY: Cramping and vaginal bleeding FINDINGS: One view pelvis: Intrauterine device projects along the left aspect of the pelvis. Sacral alar preserved. Bony pelvis is intact. Symmetric hip spaces. IMPRESSION: Intrauterine device left aspect of the pelvis.
[2020-07-13 14:22] LABS: Bilirubin Negative (Negative); Blood, Urine Negative (Negative); Clarity Clear (Clear); Glucose, Urine (Dipstick) Normal (Negative); Ketone, Urine Negative (Negative); Leukocyte Negative Leu/uL (Negative); Nitrite Negative (Negative); Protein, Urine (Dipstick) 20 mg/dL (Neg-Trace); Specific Gravity, Urine 1.027 (1.002-1.036); Urobilinogen Normal mg/dL (Less than 2)
[2020-07-13 14:23] LABS: Pregnancy Test - Urine (BHCG) Negative (Negative); Pregu Control Background? CLEAR/WHITE (CLR/WHITE); Pregu Control Bar Appear? YES (CONTROL BAR); Specific Gravity 1.027 (1.002-1.036)
== END 2020-07-13 15:10 | disposition home or self-care (01) ==
LOC: ERS 11:57
DX: N93.9 Abnormal uterine and vaginal bleeding, unspecified (principal); Z97.5 Presence of (intrauterine) contraceptive device; F41.9 Anxiety disorder, unspecified; F32.9 Major depressive disorder, single episode, unspecified
CPT/HCPCS: 36415; 72170; 80053; 81003; 81025; 85025

== ENCOUNTER 2020-08-29 10:27 | Emergency (ER) | payer OTHER ==
[2020-08-29] MEDS ORDERED: Ketorolac Tromethamine 30 MG/ML VIAL ONE (10:51)
[2020-08-29 11:08] LABS: Bacteria/HPF 2+ HPF (None Seen); Bilirubin Negative (Negative); Blood, Urine 1+ (Negative); Clarity Extra Turbid (Clear); Glucose, Urine (Dipstick) Normal (Negative); Ketone, Urine Negative (Negative); Leukocyte 500 Leu/uL (Negative); Nitrite 2+ (Negative); Protein, Urine (Dipstick) 50 mg/dL (Neg-Trace); RBC/HPF 21-50 HPF (0-3); Specific Gravity, Urine 1.012 (1.002-1.036); Squamous Epithelial 0-3 HPF (0-3); Urobilinogen Normal mg/dL (Less than 2); WBC/HPF Greater than 50 HPF (0-3)
[2020-08-29 11:25] LABS: #Eosinphils 0.1 thou/uL (0.0-0.7); #Lymphocytes 1.8 thou/uL (1.20-3.40); #Monocytes 0.9 thou/uL (0.11-0.59); #Neutrophils 13.2 thou/uL (1.40-6.50); %Basophils 0.2 % (0.0-1.0); %Eosinophils 0.4 % (0.0-10.0); %Lymphocytes 11.2 % (21.0-51.0); %Monocytes 5.4 % (0.0-10.0); %Neutrophils 82.9 % (42.0-75.0); Hemoglobin 11.6 g/dL (12.0-16.0); Mean Corpuscular HGB CONC 33.7 g/dL (32.0-36.0); Mean Corpuscular Hemoglobin 30.8 pg (27.0-31.0); Mean Corpuscular Volume 91.4 fL (78.0-98.0); Mean Platelet Volume 8.5 fL (7.4-10.4); Platelet Count 293 thou/uL (130-400); RBC Distribution Width 12.4 % (11.5-14.5); Red Blood Cell (RBC) Count 3.77 mill/uL (4.20-5.40); White Blood Cell (WBC) Count 15.9 thou/uL (4.8-10.8)
[2020-08-29] MEDS ORDERED: cefTRIAXone\\ROCEPHIN 2 GM VIAL ONE (11:33)
[2020-08-29 11:49] LABS: ALT (SGPT) 10 U/L (8-55); AST (SGOT) 10 U/L (5-34); Albumin 4.1 g/dL (3.5-5.0); Alkaline Phosphatase 85 U/L (40-110); Anion Gap 13 mmol/L (10-20); BUN (Urea Nitrogen) 7 mg/dL (7.0-18.7); Bilirubin, Total 0.5 mg/dL (0.2-1.2); Calc. Creatinine Clearance 0 mL/min (70-130); Calcium 8.8 mg/dL (7.8-10.44); Carbon Dioxide 26 mmol/L (22-29); Chloride 103 mmol/L (98-107); Globulin 3.8 g/dL (2.4-3.5); Glucose 92 mg/dL (70-105); Lipase 12 U/L (8-78); Potassium 3.6 mmol/L (3.5-5.1); Protein, Total 7.9 g/dL (6.0-8.3); Sodium 138 mmol/L (136-145)
[2020-08-29 12:01] LABS: BHCG - Serum Negative (NEGATIVE); Pregs Control Background? CLEAR/WHITE (CLR/WHITE); Pregs Control Bar Appear? YES (CONTROL BAR)
== END 2020-08-29 12:30 | disposition home or self-care (01) ==
LOC: ERS 10:27
DX: N10 Acute pyelonephritis (principal)
CPT/HCPCS: 36415; 80053; 81003; 81015; 83605; 83690; 84703; 85025; 87040; 96365; 96375; J0696; J1885

== ENCOUNTER 2020-11-25 09:24 | Emergency (ER) | payer OTHER ==
[2020-11-25 15:39] LABS: SARS-CoV-2 PCR by NAA Not Detected (NotDetected)
== END 2020-11-25 10:52 | disposition home or self-care (01) ==
LOC: ERS 09:24
DX: J06.9 Acute upper respiratory infection, unspecified (principal); F17.210 Nicotine dependence, cigarettes, uncomplicated; Z20.822 Contact with and (suspected) exposure to COVID-19
CPT/HCPCS: 87635; 99283; U0003; U0005

== ENCOUNTER 2023-11-01 13:42 | Emergency (ER) | payer OTHER, SELFPAY ==
[2023-11-01] MEDS ORDERED: Dexamethasone 10 MG/ML VIAL ONE ×2 (14:42→14:45)
[2023-11-01] MEDS ORDERED: Ibuprofen 800 MG TAB ONE (14:43)
[2023-11-01 15:54] LABS: Influenza A by NAA Not Detected (NotDetected); Influenza B by NAA Not Detected (NotDetected); SARS-CoV-2 NAA Rapid Test Not Detected (NotDetected)
== END 2023-11-01 16:30 | disposition home or self-care (01) ==
LOC: ERS 13:42
DX: B34.9 Viral infection, unspecified (principal); F17.290 Nicotine dependence, other tobacco product, uncomplicated
CPT/HCPCS: 99283; J1100

== ENCOUNTER 2025-07-19 08:39 | Emergency (ER) | payer OTHER, SELFPAY ==
[2025-07-19 09:25] LABS: #Basophils 0.03 10x3/uL (0.0-0.2); #Eosinophils 0.24 10x3/uL (0.0-0.7); #Monocytes 0.38 10x3/uL (0.11-0.59); #Neutrophils 3.66 10x3/uL (1.40-6.50); %Basophils 0.4 % (0.0-1.0); %Eosinophils 3.5 % (0.0-10.0); %Lymphocytes 37.7 % (21.0-51.0); %Monocytes 5.5 % (0.0-10.0); %Neutrophils 52.8 % (42.0-75.0); Hematocrit 35.9 % (36.0-47.0); Hemoglobin 12.0 g/dL (12.0-16.0); Mean Corpuscular Hemoglobin 30.9 pg (27.0-31.0); Mean Corpuscular Volume 92.5 fL (78.0-98.0); Platelet Count 280 10x3/uL (130-400); Red Blood Cell (RBC) Count 3.88 mill/uL (4.20-5.40); White Blood Cell (WBC) Count 6.93 10x3/uL (4.8-10.8)
[2025-07-19] MEDS ORDERED: Cyclobenzaprine 10 MG TAB ONE (09:27)
[2025-07-19 09:40] LABS: ALT (SGPT) 11 U/L (Less than 34); AST (SGOT) 15 U/L (11-34); Albumin 3.5 g/dL (3.1-4.5); Alkaline Phosphatase 67 U/L (40-110); Anion Gap 9 mmol/L (10-20); BUN (Urea Nitrogen) 11 mg/dL (7.0-18.7); Bilirubin, Total 0.2 mg/dL (0.3-1.2); Calc. Creatinine Clearance 0 mL/min (70-130); Calcium 8.7 mg/dL (7.8-10.44); Carbon Dioxide 26 mmol/L (22-29); Chloride 105 mmol/L (98-107); Globulin 3.3 g/dL (2.4-3.5); Glucose 91 mg/dL (70-105); Potassium 4.2 mmol/L (3.5-5.1); Sodium 136 mmol/L (136-145)
[2025-07-19 10:44] LABS: BHCG - Serum Negative (NEGATIVE); Pregs Control Background? CLEAR/WHITE (CLR/WHITE); Pregs Control Bar Appear? YES (CONTROL BAR)
== END 2025-07-19 12:55 | disposition home or self-care (01) ==
LOC: ERS 08:39
DX: R07.89 Other chest pain (principal); F17.290 Nicotine dependence, other tobacco product, uncomplicated
CPT/HCPCS: 71045; 71275; 80053; 84484; 84703; 85025; 85379; 93005